=== PATIENT | male | born 1995 | race American Indian/Alaskan Native ===

== ENCOUNTER 2019-08-28 14:56 | Emergency (ER) | payer SELFPAY ==
--- NOTE | 2019-08-28 15:21 | Emergency Department Report ---
Chief Complaint: Headache Stated Complaint: HEADACHE - HPI History of Present Illness: 24yo BM states that he has a headache that has been ongoing for 2 days. MSE screening note: Focused history and physical exam performed. Due to findings the following was ordered: ED Disposition for MSE Condition: Stable
[2019-08-28 15:22] VITALS: BP 133/84
--- NOTE | 2019-08-28 15:55 | Emergency Department Report ---
ED Headache HPI - General Chief Complaint: Headache Stated Complaint: HEADACHE Time Seen by Provider: 08/28/19 15:45 Source: patient, RN notes reviewed Exam Limitations: no limitations - History of Present Illness Initial Comments: This is a 24-year-old -[place] female who presents to the emergency room with a headache for 2 days. Reports past medical history of migraines. He reports headache is frontal and impeding sensation. Patient took one Goody powder reports no improvement of symptoms. 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 He was told he needed to wear glasses. Patient states even with glasses he experience occasional headaches weekly. He reports this headache is worse than usual. He reports blurry vision and vomiting. Timing/Duration: 24 hours Quality: moderate, constant, throbbing Head Injury Location: frontal Recent Head Trauma: occasional headaches Modifying Factors: improves with: exposure to light Associated Symptoms: nausea/vomiting, vision changes. denies: confusion, fatigue, facial pain, fever/chills, flushing, nasal congestion, nasal drainage, numbness in legs/feet, seizures, sinus infection, stiff neck Allergies/Adverse Reactions: Allergies No Known Allergies Allergy (Unverified 07/17/19 14:26) Home Medications: Ambulatory Orders Ketorolac [Toradol] 10 mg PO Q6H PRN #15 tablet 07/17/19 Butalb/Acetamin/Caff 50-325-40 [Fioricet 50-325-40] 1 tab PO Q6HR PRN #15 tab 08/28/19 ED Review of Systems ROS: Stated complaint: HEADACHE Other details as noted in HPI Constitutional: denies: chills, fever Eyes: vision change (blurry vision) Respiratory: denies: cough, shortness of breath, wheezing Cardiovascular: denies: chest pain, palpitations Gastrointestinal: nausea, vomiting. denies: abdominal pain, diarrhea Musculoskeletal: denies: back pain, joint swelling, arthralgia Skin: denies: rash, lesions Neurological: headache. denies: weakness, paresthesias Psychiatric: denies: anxiety, depression ED Past Medical Hx - Past Medical History Previous Medical History?: No - Surgical History Past Surgical History?: No - Social History Smoking Status: Never Smoker Substance Use Type: None - Medications Home Medications: Home Medications Medication Instructions Recorded Confirmed Last Taken Type Ketorolac [Toradol] 10 mg PO Q6H PRN #15 tablet 07/17/19 Unknown Rx Butalb/Acetamin/Caff 50-325-40 1 tab PO Q6HR PRN #15 tab 08/28/19 Unknown Rx [Fioricet 50-325-40] ED Physical Exam - General Limitations: No Limitations General appearance: alert, in no apparent distress - Respiratory Respiratory exam: Present: normal lung sounds bilaterally. Absent: respiratory distress - Cardiovascular Cardiovascular Exam: Present: regular rate, normal rhythm. Absent: systolic murmur, diastolic murmur, rubs, gallop - GI/Abdominal GI/Abdominal exam: Present: soft, normal bowel sounds - Neurological Exam Neurological exam: Present: alert, oriented X3, normal gait - Expanded Neurological Exam Expanded Patient oriented to: Present: person, place, time Speech: Present: fluid speech Cranial nerves: EOM's Intact: Normal, Gag Reflex: Normal, Tongue Deviation: Normal, Nystagmus: Normal, Facial Sensation: Normal, Facial Palsy with Forehead Movement: Normal, Facial Palsy without Forehead Movement: Normal Cerebellar function: Finger to Nose: Normal, Heel to Rehman: Normal Upper motor neuron: Adal Neglect: Normal, Pronator Drift: Normal Sensory exam: Upper Extremity Light Touch: Normal, Upper Extremity Pin Prick: Normal, Upper Extremity Temperature: Normal, UE 2 Point Discrimination: Normal Motor strength exam: RUE: 5, LUE: 5 Best Eye Response (Sheridan): (4) open spontaneously Best Motor Response (Sheridan): (6) obeys commands Best Verbal Response (Sierra): (5) oriented Sheridan Total: 15 - Psychiatric Psychiatric exam: Present: normal affect, normal mood ED Course Vital Signs 08/28/19 15:20 Temperature 98.6 F Pulse Rate 71 Respiratory 16 Rate Blood Pressure 133/84 [Left] O2 Sat by Pulse 97 Oximetry ED Medical Decision Making - Radiology Data Radiology results: report reviewed CT head/brain wo con INDICATION / CLINICAL INFORMATION: 24 years Male; headache. TECHNIQUE: Routine CT head without contrast. All CT scans at this location are performed using CT dose reduction for ALARA by means of automated exposure control. COMPARISON: None. FINDINGS: BRAIN / INTRACRANIAL CONTENTS: No acute hemorrhage, mass effect, midline shift, hydrocephalus, or acute, large territorial infarct. No chronic infarct or focal atrophy. Normal brain volume and v entricular/sulcal size for age. No significant white matter abnormality. CRANIOCERVICAL JUNCTION: No significant abnormality. ORBITS: No significant abnormality of visualized orbits. SINUSES / MASTOIDS: No significant abnormality of the visualized paranasal sinuses or mastoid air cells. ADDITIONAL FINDINGS: None. IMPRESSION: Normal nonenhanced CT scan of the brain. - Medical Decision Making Patient is stable and was examined by me. Vitals are stable. CT of head obtained and normal nonenhanced CT scan of the brain. No signs of distress noted. Given toradol and zofran once in ER. Reports feeling much better. Start Fioricet for her migraines. Patient instructed to take medication at start of headache. No further questions noted by the patient. Discharged home in stable condition. Follow up with PCP in 24-72 hours. Critical care attestation.: If time is entered above; I have spent that time in minutes in the direct care of this critically ill patient, excluding procedure time. ED Disposition Clinical Impression: Migraine Qualifiers: Migraine type: without aura Status migrainosus presence: with status migrainosus Intractability: not intractable Qualified Code(s): G43.001 - Migraine without aura, not intractable, with status migrainosus Disposition: TO HOME OR SELFCARE Is pt being admited?: No Condition: Stable Instructions: Migraine Headache (ED) Additional Instructions: Take medication at start of headache. Moderate caffeine intake. Eat at scheduled times or 3 meals a day with snacks. Follow up with primary care provider in 24-72 hours. Prescriptions: Butalb/Acetamin/Caff 50-325-40 [Fioricet 50-325-40] 1 tab PO Q6HR PRN #15 tab PRN Reason: Headache Referrals: [facility] [Provider Group] - 3-5 Days [facility] [Outside] - 3-[address] [facility] [Outside] - 3-5 Days Forms: Work/School Release Form(ED) Time of Disposition: 19:22
[2019-08-28] MEDS ORDERED: KETOROLAC 30 MG/1 ML INJ IM ONE (16:13)
[2019-08-28] MEDS ORDERED: ONDANSETRON 4 MG ODT TAB PO ONE (16:13)
--- NOTE | 2019-08-28 18:21 | Cat Scan Report ---
CT head/brain wo con INDICATION / CLINICAL INFORMATION: 24 years Male; headache. TECHNIQUE: Routine CT head without contrast. All CT scans at this location are performed using CT dos e reduction for ALARA by means of automated exposure control. COMPARISON: None. FINDINGS: BRAIN / INTRACRANIAL CONTENTS: No acute hemorrhage, mass effect, midline shift, hydrocephalus, or acu te, large territorial infarct. No chronic infarct or focal atrophy. Normal brain volume and ventricul ar/sulcal size for age. No significant white matter abnormality. CRANIOCERVICAL JUNCTION: No significant abnormality. ORBITS: No significant abnormality of visualized orbits. SINUSES / MASTOIDS: No significant abnormality of the visualized paranasal sinuses or mastoid air marifer ls. ADDITIONAL FINDINGS: None. IMPRESSION: Normal nonenhanced CT scan of the brain. Signer Name: Nereida Hough MD Signed: 08/28/2019 6:17 PM Workstation Name: [id number]
== END 2019-08-28 19:40 | disposition home or self-care (01) ==
LOC: ED 14:56
DX: G43.909 Migraine, unspecified, not intractable, without status migrainosus (principal); Z79.899 Other long term (current) drug therapy
CPT/HCPCS: 70450; 96372; 99283; J1885; Q0162

== ENCOUNTER 2019-09-27 13:21 | Emergency (ER) | payer SELFPAY ==
--- NOTE | 2019-09-27 19:10 | Emergency Department Report ---
ED Headache HPI - General Chief Complaint: Headache Stated Complaint: HEADACHE Time Seen by Provider: 09/27/19 18:37 - History of Present Illness Timing/Duration: 4-6 hours Quality: moderate Head Injury Location: parietal Recent Head Trauma: chronic headaches, occasional headaches Associated Symptoms: nasal congestion. denies: confusion, facial pain, fever/chills, nasal drainage, numbness in legs/feet, vision changes Allergies/Adverse Reactions: Allergies No Known Allergies Allergy (Unverified 07/17/19 14:26) Home Medications: Ambulatory Orders Ketorolac [Toradol] 10 mg PO Q6H PRN #15 tablet 07/17/19 Butalb/Acetamin/Caff 50-325-40 [Fioricet 50-325-40] 1 tab PO Q6HR PRN #15 tab 08/28/19 Ketorolac [Toradol] 10 mg PO Q6H PRN #14 tablet 09/27/19 ED Review of Systems ROS: Stated complaint: HEADACHE Other details as noted in HPI Comment: All other systems reviewed and negative ED Past Medical Hx - Past Medical History Previous Medical History?: No - Surgical History Past Surgical History?: No - Social History Smoking Status: Current Every Day Smoker Substance Use Type: None - Medications Home Medications: Home Medications Medication Instructions Recorded Confirmed Last Taken Type Ketorolac [Toradol] 10 mg PO Q6H PRN #15 tablet 07/17/19 Unknown Rx Butalb/Acetamin/Caff 50-325-40 1 tab PO Q6HR PRN #15 tab 08/28/19 Unknown Rx [Fioricet 50-325-40] Ketorolac [Toradol] 10 mg PO Q6H PRN #14 tablet 09/27/19 Unknown Rx ED Physical Exam - General Limitations: No Limitations General appearance: alert, in no apparent distress - Head Head exam: Present: atraumatic, normocephalic - Eye Eye exam: Present: normal appearance, PERRL, EOMI. Absent: conjunctival injection, nystagmus Pupils: Present: normal accommodation. Absent: unequal - ENT ENT exam: Present: normal exam, mucous membranes moist - Neck Neck exam: Present: normal inspection. Absent: tenderness, meningismus, lymphadenopathy - Respiratory Respiratory exam: Present: normal lung sounds bilaterally. Absent: respiratory distress, wheezes, rales, rhonchi - Cardiovascular Cardiovascular Exam: Present: regular rate, normal rhythm. Absent: systolic murmur, diastolic murmur, rubs, gallop - GI/Abdominal GI/Abdominal exam: Present: soft, normal bowel sounds. Absent: tenderness, guarding - Rectal Rectal exam: Present: deferred - Extremities Exam Extremities exam: Present: normal inspection - Back Exam Back exam: Present: normal inspection - Neurological Exam Neurological exam: Present: alert, oriented X3, CN II-XII intact, normal gait, reflexes normal. Absent: motor sensory deficit - Psychiatric Psychiatric exam: Present: normal affect, normal mood - Skin Skin exam: Present: warm, dry, intact, normal color. Absent: rash ED Course Vital Signs 09/27/19 09/27/19 09/27/19 14:07 17:46 17:49 Temperature 97.6 F 98.2 F Pulse Rate 98 H 66 Respiratory 18 16 100 H Rate Blood Pressure 134/86 Blood Pressure 114/84 [Left] O2 Sat by Pulse 100 100 Oximetry 09/27/19 09/27/19 18:14 19:56 Temperature 98 F 98 F Pulse Rate 77 76 Respiratory 14 16 Rate Blood Pressure Blood Pressure 118/81 120/80 [Left] O2 Sat by Pulse 99 100 Oximetry ED Medical Decision Making - Medical Decision Making Mr. Cannon presents with a headache most consistent with migraine. Differential diagnosis includes migraine versus tension type headache. No headache red flags. Neurologic exam without evidence of meningismus, focal neurologic findings.Based on the patient's history and physical there is very low clinical suspicion for significant intracranial pathology. The headache was NOT sudden onset, NOT maximal at onset, there are NO neurologic findings, the patient does NOT have a fever, the patient does NOT have any jaw claudication, the patient does NOT endorse a clotting disorder, patient DENIES any trauma or eye pain and the headache is NOT associated with dizziness or ataxia. Presentation not consistent with acute intracranial bleed to include SAH (lack of risk factors, headache history). Presentation not consistent with acute [employer] infection to include meningitis or brain abscess, Temporal arteritis unlikely, as is acute angle closure glaucoma given history and physical findings. Presenta tion not consistent with other acute, emergent causes of headache at this time. Plan to treat symptomatically with pain medication. No indication for imaging/LP at this time. Plan: pain medication: At this present time states that his headache pain is very mild he is neurologically intact with normal 4 with conservative therapy. Patient does Fioricet at home been advised to 2 initiate therapy and he will also been instructed to follow-up with neurology or internal medicine. Handouts were provided as well as information on internal medicine Critical care attestation.: If time is entered above; I have spent that time in minutes in the direct care of this critically ill patient, excluding procedure time. ED Disposition Clinical Impression: Cephalgia Disposition: DC-01 TO HOME OR SELFCARE Is pt being admited?: No Does the pt Need Aspirin: No Condition: Stable Instructions: Migraine Headache (ED), Acute Headache (ED), Ocular Migraine (ED) Additional Instructions: You have been evaluated in the Emergency Department today for headache. Your evaluation did not show evidence of medical conditions requiring emergent intervention at this time, and your pain improved with medication in the ED. We recommend you take 600mg ibuprofen every 6 hours or tylenol 650mg every 6 hours as needed for pain. If needed, you can alternate these medications so that you take one medication every 3 hours. For instance, at noon take ibuprofen, then at 3pm take tylenol, then at 6pm take ibuprofen. Please follow up with your primary care physician within two days. Return to the Emergency Department if you experience worsening or uncontrolled pain, vision changes, recurrent vomiting, difficulty with normal activities, abnormal behavior, difficulty walking, numbness, weakness, or any other concerning symptoms. Thank you for choosing us for your care. Prescriptions: Ketorolac [Toradol] 10 mg PO Q6H PRN #14 tablet PRN Reason: Pain Referrals: PRIMARY MD MEREDITH [Primary Care Provider] - 3-5 Days LUPILLO MONTAÑO MD [Staff Physician] - 3-5 Days DUGLAS WELLER MD [Staff Physician] - 3-5 Days GIACOMO MARISCAL MD [Staff Physician] - 3-5 Days
[2019-09-27 19:59] VITALS: BP 120/80
== END 2019-09-27 19:59 | disposition home or self-care (01) ==
LOC: ED 13:21
DX: R51 Headache (principal); F17.200 Nicotine dependence, unspecified, uncomplicated; Z79.899 Other long term (current) drug therapy

== ENCOUNTER 2019-11-07 09:01 | Emergency (ER) | payer SELFPAY ==
[2019-11-07 09:19] VITALS: BP 126/83
[2019-11-07] MEDS ORDERED: IBUPROFEN 600 MG TAB PO ONE (10:14)
--- NOTE | 2019-11-07 10:20 | Emergency Department Report ---
- General Chief Complaint: Upper Respiratory Infection Stated Complaint: SORE THROAT Source: patient Mode of arrival: Ambulatory Limitations: No Limitations - History of Present Illness Initial Comments: 24 yo male c/o sore throat, dry cough and left wrist pain. He denies any recent falls or injuries has hx of left wrist injury few years ago. Denies fever nausea and vomiting. MD Complaint: cough, sore throat -: Gradual, days(s) Severity: mild, severe Severity scale (0 -10): 8 Quality: sharp Consistency: constant Improves With: nothing Worsens With: nothing Associated Symptoms: fever, chills, myalgias, chest pain, confusion, right sweats. denies: stiff neck, cough, shortness of breath, abdominal pain, rash, weight loss Treatments Prior to Arrival: none - Related Data Previous Rx's Medication Instructions Recorded Last Taken Type Ketorolac [Toradol] 10 mg PO Q6H PRN #15 tablet 07/17/19 Unknown Rx Butalb/Acetamin/Caff 50-325-40 1 tab PO Q6HR PRN #15 tab 08/28/19 Unknown Rx [Fioricet 50-325-40] Ketorolac [Toradol] 10 mg PO Q6H PRN #14 tablet 09/27/19 Unknown Rx Amoxicillin [Amoxicillin TAB] 875 mg PO BID 10 Days #20 tablet 11/07/19 Unknown Rx Allergies Allergy/AdvReac Type Severity Reaction Status Date / Time No Known Allergies Allergy Unverified 07/17/19 14:26 ED Review of Systems ROS: Stated complaint: SORE THROAT Other details as noted in HPI Comment: All other systems reviewed and negative Constitutional: no symptoms reported ENT: throat pain Respiratory: cough Endocrine: no symptoms reported Gastrointestinal: denies: abdominal pain, nausea Musculoskeletal: other (LEFT WRIST PAIN ) Neurological: denies: headache, paresthesias Hematological/Lymphatic: denies: as per HPI ED Past Medical Hx - Past Medical History Previous Medical History?: Yes Hx Headaches / Migraines: Yes - Surgical History Past Surgical History?: No - Social History Smoking Status: Never Smoker Substance Use Type: None - Medications Home Medications: Home Medications Medication Instructions Recorded Confirmed Last Taken Type Ketorolac [Toradol] 10 mg PO Q6H PRN #15 tablet 07/17/19 Unknown Rx Butalb/Acetamin/Caff 50-325-40 1 tab PO Q6HR PRN #15 tab 08/28/19 Unknown Rx [Fioricet 50-325-40] Ketorolac [Toradol] 10 mg PO Q6H PRN #14 tablet 09/27/19 Unknown Rx Amoxicillin [Amoxicillin TAB] 875 mg PO BID 10 Days #20 tablet 11/07/19 Unknown Rx ED Physical Exam - General Limitations: No Limitations General appearance: alert, in no apparent distress - Head Head exam: Present: atraumatic - Eye Eye exam: Present: normal appearance. Absent: scleral icterus, conjunctival injection - ENT ENT exam: Present: mucous membranes moist, normal external ear exam, other (Midline uvula, uvula with mild swelling, and erythrema, no post pharyngeal swelling or erythema, maxillary sinus tenderness bilaterally) - Neck Neck exam: Present: normal inspection, full ROM. Absent: tenderness, ly mphadenopathy - Respiratory Respiratory exam: Present: normal lung sounds bilaterally. Absent: respiratory distress, wheezes, chest wall tenderness - Cardiovascular Cardiovascular Exam: Present: regular rate, normal rhythm, normal heart sounds - GI/Abdominal GI/Abdominal exam: Present: soft - Extremities Exam Extremities exam: Present: normal inspection, normal capillary refill, other (right wrist full rom no swelling no tenderness,abduct and extend fingers without pain, 2+ radial pulse sensation intact) - Neurological Exam Neurological exam: Present: alert, oriented X3 - Psychiatric Psychiatric exam: Present: normal affect - Skin Skin exam: Present: warm, dry, intact ED Course Vital Signs 11/07/19 09:17 Temperature 97.8 F Pulse Rate 80 Respiratory 18 Rate Blood Pressure 126/83 O2 Sat by Pulse 99 Oximetry ED Medical Decision Making - Medical Decision Making 24 yo male with sore throat and left wrist pain No injury to the left wrist. On examination no swelling no deformity no point-tenderness, full rom sensation intact with 2+ radial pulse. With my assessment and no hx of recent falls , injury or heavy lifting xray is not indicated Rapid strep is negative With maxillary sinus tenderness with treat for sinusitis. Follow up with PCP and or Dr Garay. Critical Care Time: No Critical care attestation.: If time is entered above; I have spent that time in minutes in the direct care of this critically ill patient, excluding procedure time. ED Disposition Clinical Impression: Sinusitis Qualifiers: Sinusitis location: maxillary Chronicity: acute Recurrence: non-recurrent Qualified Code(s): J01.00 - Acute maxillary sinusitis, unspecified Pharyngitis Qualifiers: Pharyngitis/tonsillitis etiology: unspecified etiology Qualified Code(s): J02.9 - Acute pharyngitis, unspecified Disposition: TO HOME OR SELFCARE Is pt being admited?: No Does the pt Need Aspirin: No Condition: Stable Instructions: Sinusitis (ED) Additional Instructions: Rest increase oral hydration , take advil or tylenol for pain as directed by package insert. Prescriptions: Amoxicillin [Amoxicillin TAB] 875 mg PO BID 10 Days #20 tablet Referrals: GIACOMO GARAY MD [Staff Physician] - 3-5 Days Time of Disposition: 10:55
== END 2019-11-07 11:13 | disposition home or self-care (01) ==
LOC: ED 09:01
DX: J32.9 Chronic sinusitis, unspecified (principal); J02.9 Acute pharyngitis, unspecified; M25.532 Pain in left wrist; G43.909 Migraine, unspecified, not intractable, without status migrainosus; Z79.899 Other long term (current) drug therapy
CPT/HCPCS: 87116; 87430

== ENCOUNTER 2019-11-14 18:12 | Emergency (ER) | payer SELFPAY ==
[2019-11-14 18:22] VITALS: BP 128/78
--- NOTE | 2019-11-14 19:30 | Event Note ---
ED Screening Note Date of service: 11/14/19 Time: 19:29 ED Screening Note: Pt complains of back pain x 2 days denies injury, but odes push wheel chairs for work This initial assessment/diagnostic orders/clinical plan/treatment(s) is/are subject to change based on patients health status, clinical progression and re- assessment by fellow clinical providers in the ED. Further treatment and workup at subsequent clinical providers discretion. Patient/guardian urged not to elope from the ED as their condition may be serious if not clinically assessed and managed. Initial orders include: ACC XR
== END 2019-11-15 02:00 | disposition left against medical advice (07) ==
LOC: ED 18:12
DX: M54.9 Dorsalgia, unspecified (principal); Z53.21 Procedure and treatment not carried out due to patient leaving prior to being seen by health care provider

== ENCOUNTER 2019-11-15 08:35 | Emergency (ER) | payer SELFPAY ==
[2019-11-15 08:44] VITALS: BP 138/84
== END 2019-11-15 12:49 | disposition left against medical advice (07) ==
LOC: ED 08:35
DX: M54.9 Dorsalgia, unspecified (principal); Z53.21 Procedure and treatment not carried out due to patient leaving prior to being seen by health care provider

== ENCOUNTER 2020-01-21 05:36 | Emergency (ER) | payer SELFPAY ==
[2020-01-21 05:50] VITALS: BP 142/86
--- NOTE | 2020-01-21 07:28 | Emergency Department Report ---
Minor Respiratory - HPI Chief Complaint: Sore Throat Stated Complaint: TROUBLE BREATHING Time Seen by Provider: 01/21/20 07:26 Duration: 1 Day Pain Location: Throat Severity: mild Minor Respiratory: Yes Sore Throat, Yes Able to Tolerate Fluids, No Rhinorrhea, No Ear Pain, No Cough, No Sick Contacts, No Hemoptysis, No Chest Pain, No Shortness of Breath, No Fever Other History: Patient is a 24-year-old male comes to the emergency room complaining of sore throat. [place] and is concerned that he has [place]. He has no shortness of breath and no fever. His uvula is boggy and edematous. He is controlling secretions. He is able to take p.o. Airway not compromised. ED Review of Systems ROS: Stated complaint: TROUBLE BREATHING Other details as noted in HPI Comment: All other systems reviewed and negative ED Past Medical Hx - Past Medical History Previous Medical History?: Yes Hx Headaches / Migraines: Yes - Surgical History Past Surgical History?: No - Social History Smoking Status: Never Smoker Substance Use Type: None - Medications Home Medications: Home Medications Medication Instructions Recorded Confirmed Last Taken Type Ketorolac [Toradol] 10 mg PO Q6H PRN #15 tablet 07/17/19 Unknown Rx Butalb/Acetamin/Caff 50-325-40 1 tab PO Q6HR PRN #15 tab 08/28/19 Unknown Rx [Fioricet 50-325-40] Ketorolac [Toradol] 10 mg PO Q6H PRN #14 tablet 09/27/19 Unknown Rx Amoxicillin [Amoxicillin TAB] 875 mg PO BID 10 Days #20 tablet 11/07/19 Unknown Rx Amoxicillin [Trimox CAP] 500 mg PO BID #20 capsule 01/21/20 Unknown Rx Minor Respiratory Exam - Exam General: Vital signs noted. No distress. Alert and acting appropriately. HEENT: Yes Pharyngeal Erythema, Yes Moist Mucous Membranes, No Pharyngeal Exudates, No Rhinorrhea, No Conjuctival Injection, No Frontal Tenderness, No Maxillary Tenderness Ear: Neither TM Bulge, Neither TM Erythema, Neither EAC Pain, Neither EAC Di scharge Neck: Yes Supple, No Adenopathy Lungs: Yes Good Air Exchange, No Wheezes, No Ronchi, No Stridor, No Cough, No Labored Respirations, No Retractions, No Use of Accessory Muscles, No Other Abnormal Lung Sounds Heart: Yes Regular, No Murmur Abdomen: Yes Normal Bowel Sounds, No Tenderness, No Peritoneal Signs Skin: No Rash, No Edema Neurologic: Alert and oriented, no deficits. Musculoskeletal: Unremarkable. ED Course Vital Signs 01/21/20 01/21/20 05:45 05:47 Temperature 98.3 F Pulse Rate 87 90 Respiratory 18 18 Rate Blood Pressure 142/86 O2 Sat by Pulse 97 97 Oximetry ED Medical Decision Making - Medical Decision Making no shortness of breath vital signs stable no fever Ambulatory without shortness of breath. Vital Signs 01/21/20 01/21/20 05:45 05:47 Temperature 98.3 F Pulse Rate 87 90 Respiratory 18 18 Rate Blood Pressure 142/86 O2 Sat by Pulse 97 97 Oximetry - Differential Diagnosis Rule out upper respiratory tract infection including coated Critical care attestation.: If time is entered above; I have spent that time in minutes in the direct care of this critically ill patient, excluding procedure time. ED Disposition Clinical Impression: Uvulitis Disposition: - TO HOME OR SELFCARE Is pt being admited?: No Does the pt Need Aspirin: No Condition: Stable Additional Instructions: stay well hydrated wash your hands tylenol for pain med as ordered today Prescriptions: Amoxicillin [Trimox CAP] 500 mg PO BID #20 capsule Referrals: GIACOMO MARISCAL MD [Staff Physician] - 3-5 Days Time of Disposition: 07:27
== END 2020-01-21 07:52 | disposition home or self-care (01) ==
LOC: ED 05:36
DX: K12.2 Cellulitis and abscess of mouth (principal); G43.909 Migraine, unspecified, not intractable, without status migrainosus
CPT/HCPCS: 99282